=== PATIENT | male | born 1985 | race Caucasian/White ===

== ENCOUNTER 2024-06-10 21:54 | Emergency (ER) | payer BC ==
[~2024-06-10] VITALS: Ht 193 cm; Wt 99.3 kg
[2024-06-11] MEDS ORDERED: HYDROCODONE/APAP 5-325MG TABLET ONE (00:28)
[2024-06-11] MEDS ORDERED: IBUPROFEN 600 MG TABLET ONE (00:28)
[2024-06-11] MEDS: HYDROCODONE/APAP 5-325MG TABLET PO ONE (00:29)
[2024-06-11] MEDS: IBUPROFEN 600 MG TABLET PO ONE (00:29)
[2024-06-11] MEDS ORDERED: HYDR-3980 PO (00:46)
[2024-06-11] MEDS ORDERED: ONDA4TAB11 PO (00:46)
[2024-06-11 00:56] VITALS: BP 135/88; TEMP 98; O2SAT 98
== END 2024-06-11 00:56 | disposition home or self-care (01) ==
LOC: ER 22:00
DX: M79.605 Pain in left leg (principal); Z87.442 Personal history of urinary calculi; Z98.890 Other specified postprocedural states
CPT/HCPCS: 73590; A4606; A4663